=== PATIENT | male | born 2000 | race Caucasian/White ===

== ENCOUNTER 2021-02-03 23:50 | Emergency (ER) | payer OTHER ==
[2021-02-04 00:12] VITALS: BP 151/72; PULSE 86; TEMP 98.5; BMI 50.1
[2021-02-04] MEDS ORDERED: ONDANSETRON 4 MG/2 ML VIAL IVPUSH ONE (00:59)
[2021-02-04] MEDS ORDERED: FAMOTIDINE 20 MG/50 ML IVPB 20 MG/50 ML MG IVPB ONE ×2 (00:59→01:05)
[2021-02-04] MEDS ORDERED: ONDANSETRON 4 MG/2 ML VIAL ONE (01:05)
[2021-02-04] MEDS ORDERED: SODIUM CHLORIDE 0.9% 500 ML INFUS.BAG IV ONE (01:16)
[2021-02-04 01:28] LABS: BASO % 1.1 % (0-2.0); EOS % 0.3 % (0-4.5); HEMATOCRIT 41.7 % (35.4-49); HEMOGLOBIN 14.1 GM/dL (11.7-16.9); LYMPH % 24.7 % (8-40); MCH 28.6 pg (25.7-33.7); MCHC 33.8 g/dl (32.0-35.9); MEAN CELL VOLUME 84.6 fl (80-96); MEAN PLT VOLUME 9.6 fl (7.5-11.1); MONO % 9.5 % (3.8-10.2); NEUT % 64.4 % (42.8-82.8); PLATELET COUNT 225 10^3/uL (134-434); RBC 4.93 M/mm3 (4.00-5.60); RDW 13.7 % (11.9-15.9); WHITE BLOOD COUNT 10.8 K/mm3 (4.0-10.0)
[2021-02-04 02:04] LABS: BLOOD UREA NITROGEN 15.2 mg/dL (7-18); CALCIUM 9.1 mg/dL (8.5-10.1)
[2021-02-04 02:07] LABS: CREATININE 1.4 mg/dL (0.55-1.3)
[2021-02-04 02:09] LABS: BILIRUBIN,TOTAL 0.5 mg/dL (0.2-1); TOT PROT 7.7 g/dl (6.4-8.2)
== END 2021-02-04 03:19 | disposition home or self-care (01) ==
LOC: JER 23:50
PROC: 3E033GC Introduction of Other Therapeutic Substance into Peripheral Vein, Percutaneous Approach (ICD-10-PCS; principal; 2021-02-03)
PROC: 3E033GC Introduction of Other Therapeutic Substance into Peripheral Vein, Percutaneous Approach (ICD-10-PCS; 2021-02-03)
DX: R19.7 Diarrhea, unspecified (principal); R11.2 Nausea with vomiting, unspecified
CPT/HCPCS: 36415; 80053; 82150; 83690; 85025; 99284-25